=== PATIENT | female | born 1990 ===

== ENCOUNTER 2016-12-23 23:52 | Emergency (ER) | payer MEDICAID ==
[~2016-12-23 23:52] MED LIST: Acetaminophen 160 mg/5 ml UD PO ONE
--- NOTE | 2016-12-24 00:41 | C.PDOC ---
History Of Present Illness Patient is a 26 year old female who presents to the ER with a complaint of bilateral red, itchy, teary, eyes for the past week, associated with nasal congestion and an itchy throat. Patient reports waking up this morning with purulent discharge of both eyes. Patient notes taking claritin with no relief. Patient denies fever, difficulty breathing, or difficulty swallowing. Time Seen by Provider: 12/24/16 00:17 Chief Complaint (Nursing): Eye Problem History Per: Patient History/Exam Limitations: no limitations Onset/Duration Of Symptoms: Days (7) Current Symptoms Are (Timing): Still Present Injury To Eye?: No Quality: Other (Itchiness) Associated Symptoms: Itching, Discharge From Eye, Other (Redness) Recent travel outside of the [place]: No Additional History Per: Patient Past Medical History Reviewed: Historical Data, Nursing Documentation, Vital Signs Vital Signs: Last Vital Signs Temp 98.9 F 12/24/16 01:11 Pulse 86 12/24/16 01:11 Resp 18 12/24/16 01:11 BP 104/76 12/24/16 01:11 Pulse Ox 99 12/24/16 01:31 - Medical History PMH: No Chronic Diseases Surgical History: No Surg Hx Family History: States: Unknown Family Hx - Social History Hx Alcohol Use: No Hx Substance Use: No - Immunization History Hx Tetanus Toxoid Vaccination: No Hx Influenza Vaccination: Yes Hx Pneumococcal Vaccination: No Review Of Systems Constitutional: Negative for: Fever Eyes: Positive for: Redness, Other (Itchiness, teary) ENT: Positive for: Other (Throat itchiness). Negative for: Throat Swelling Respiratory: Negative for: Shortness of Breath, SOB with Excertion Physical Exam - Physical Exam Appears: Well, Non-toxic Skin: Normal Color, Warm, Dry Head: Atraumatic, Normacephalic Eye(s): bilateral: Normal Inspection, PERRL, EOMI, Other (Mild conjunctiva injection. No crusting at eyelids. No Purulent discharge.) Nose: Other (Enlarged turbinates) Oral Mucosa: Moist Tongue: Normal Appearing, No Swelling Throat: Normal, No Erythema, No Exudate, No Other (Swelling) Neck: Normal, Normal ROM Chest: Symmetrical, No Tenderness Cardiovascular: Rhythm Regular, No Murmur Respiratory: Normal Breath Sounds, No Rales, No Rhonchi, No Wheezing Neurological/Psych: Oriented x3, Normal Speech, Normal Cognition ED Course And Treatment O2 Sat by Pulse Oximetry: 99 (Room air) Pulse Ox Interpretation: Normal Progress Note: Tylenol PO administered. Patient feels better, condition has improved, instructed to follow up with PMD, will be discharged home. Disposition Counseled Patient/Family Regarding: Diagnosis, Need For Followup, Rx Given - Disposition Referrals: [facility] [Outside] Disposition: HOME/ ROUTINE Disposition Time: 00:37 Condition: STABLE Additional Instructions: Please follow up with PMD Take meds as directed Apply cold compress to eyes Return to ER if worse Prescriptions: Cetirizine HCl [Zyrtec] 10 mg PO DAILY #20 capsule Dexamethasone/Tobramycin [Tobradex 0.1%-0.3% 2.5 Ml] 1 drop OP BID #1 bottle Instructions: Allergic Rhinitis (ED) - Clinical Impression Clinical Impression: Allergic rhinitis - Scribe Statement The provider has reviewed the documentation as recorded by the Scribe George Cavazos All medical record entries made by the Scribe were at my direction and personally dictated by me. I have reviewed the chart and agree that the record accurately reflects my personal performance of the history, physical exam, medical decision making, and the department course for this patient. I have also personally directed, reviewed, and agree with the discharge instructions and disposition.
[2016-12-24 01:14] VITALS: BP 104/76; PULSE 86; RESP 18; TEMP 98.9
[2016-12-24 01:25] VITALS: O2SAT 99
== END 2016-12-24 01:11 | disposition home or self-care (01) ==
LOC: C.ER 23:52
DX: J30.9 Allergic rhinitis, unspecified (principal)

== ENCOUNTER 2018-12-24 10:49 | Emergency (ER) | payer MEDICAID ==
[2018-12-24 11:09] VITALS: TEMP 98.6; O2SAT 100; BMI 26.2
--- NOTE | 2018-12-24 12:04 | C.PDOC ---
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 Patient states that she has pain to her right ankle. Patient denies numbness, weakness, head injury, headache, abdominal pain, and chest pain. Time Seen by Provider: 12/24/18 11:16 Chief Complaint (Nursing): Lower Extremity Problem/Injury History Per: Patient History/Exam Limitations: no limitations Onset/Duration Of Symptoms: Days (1) Current Symptoms Are (Timing): Still Present Recent travel outside of the [place]: No - Ankle/Foot Description Of Injury: Fell, Twisted Alleviating Factor(s): Ice Therapy Past Medical History Reviewed: Historical Data, Nursing Documentation, Vital Signs Vital Signs: Last Vital Signs Temp 98.6 F 12/24/18 11:09 Pulse 84 12/24/18 11:09 Resp 16 12/24/18 11:09 BP Pulse Ox 100 12/24/18 11:09 Primary Care Provider: Rasta Pabon Surg - Medical History PMH: No Chronic Diseases Surgical History: No Surg Hx Family History: States: Unknown Family Hx - Social History Hx Alcohol Use: No Hx Substance Use: No - Immunization History Hx Tetanus Toxoid Vaccination: No Hx Influenza Vaccination: Yes Hx Pneumococcal Vaccination: No Review Of Systems Constitutional: Negative for: Fever, Chills, Weakness Cardiovascular: Negative for: Chest Pain Gastrointestinal: Negative for: Abdominal Pain Musculoskeletal: Positive for: Leg Pain (right ankle pain) Neurological: Negative for: Weakness, Numbness, Headache Physical Exam - Physical Exam Appears: Non-toxic, No Acute Distress Skin: Normal Color, Warm, Dry, No Rash Head: Atraumatic, Normacephalic Eye(s): bilateral: Normal Inspection, PERRL, EOMI Oral Mucosa: Moist Neck: Normal ROM, Supple Chest: Symmetrical, No Deformity Cardiovascular: Rhythm Regular, No Friction Rub, No Murmur Respiratory: No Accessory Muscle Use Gastrointestinal/Abdominal: Soft, No Tenderness Extremity: Tenderness (right lateral malleolus), No Calf Tenderness, Capillary Refill (<2 seconds), Swelling (right lateral malleolus) Extremity: Bilateral: Normal Color And Temperature Pulses: Left Dorsalis Pedis: Normal, Right Dorsalis Pedis: Normal Neurological/Psych: Oriented x3, Normal Speech, Normal Cognition, Normal Motor, Normal Sensation Gait: Steady ED Course And Treatment O2 Sat by Pulse Oximetry: 100 (in RA) Pulse Ox Interpretation: Normal - Other Rad Right foot X-ray X-Ray: Interpreted by Me, Viewed By Me Interpretation: IMPRESSION: No evidence of acute fracture or dislocation Right ankle X-ray X-Ray: Interpreted by Me, Viewed By Me Interpretation: IMPRESSION: Dense of acute fracture or dislocation. [id number] lateral malleolus soft tissue swelling. Medical Decision Making Medical Decision Making: Initial Plan: Motrin PO Right ankle X-ray X-ray of the right foot Airr cast and crutches were given to the patient. Follow up with the Track Worker. Disposition - Disposition Referrals: Misti Gasca DPM [Staff Provider] - Disposition: HOME/ ROUTINE Disposition Time: 13:00 Condition: GOOD Additional Instructions: Follow up with the Track Worker within 1-2 days. Return if worsened Prescriptions: Ibuprofen [Motrin] 600 mg PO TID #21 tab Instructions: Ankle Sprain (DC) Forms: [employer] (Bulgarian), Work Excuse - Clinical Impression Clinical Impression: Ankle sprain - PA / TOOLER / Resident Statement MD/DO has reviewed & agrees with the documentation as recorded. (Alma Vega) - Scribe Statement The provider has reviewed the documentation as recorded by the Scribe (Alma Vega) All medical record entries made by the Scribe were at my direction and personally dictated by me. I have reviewed the chart and agree that the record accurately reflects my personal performance of the history, physical exam, medical decision making, and the department course for this patient. I have also personally directed, reviewed, and agree with the discharge instructions and disposition.
[2018-12-24 13:06] VITALS: BP 128/68; PULSE 78; RESP 18
--- NOTE | 2018-12-24 15:16 | RAD ---
Date of service: 12/24/2018 PROCEDURE: Right Ankle Radiographs. HISTORY: ankle injury, pain laterally COMPARISON: None available. TECHNIQUE: 3 views obtained. FINDINGS: BONES: Normal. No fracture. JOINTS: Normal. No osteoarthritis. Ankle mortise maintained. Talar dome intact SOFT TISSUES: [id number] soft tissue swelling noted at the lateral malleolus OTHER FINDINGS: None. IMPRESSION: Dense of acute fracture or dislocation. [id number] lateral malleolus soft tissue swelling.
--- NOTE | 2018-12-24 15:20 | RAD ---
Date of service: 12/24/2018 PROCEDURE: Right Foot Radiographs. HISTORY: foot injury, pain COMPARISON: None. TECHNIQUE: 3 views obtained. FINDINGS: BONES: Normal. No fracture. JOINTS: Normal. SOFT TISSUES: Normal. OTHER FINDINGS: None. IMPRESSION: No evidence of acute fracture or dislocation
== END 2018-12-24 14:15 | disposition home or self-care (01) ==
LOC: C.ER 10:49
DX: S93.401A Sprain of unspecified ligament of right ankle, initial encounter (principal); X50.9XXA Other and unspecified overexertion or strenuous movements or postures, initial encounter; Y93.41 Activity, dancing
CPT/HCPCS: 73610; 73630; 97116; 97161; 99285; G8978; G8979; G8980